=== PATIENT | male | born 1945 | race Caucasian/White ===

== ENCOUNTER 2016-09-23 19:12 | Emergency (ER) | payer MEDICARE, BC ==
[2016-09-23] MEDS ORDERED: SODIUM CHLORIDE 0.9% 1,000 ML IV STA (19:57)
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
[2016-09-23 20:15] LABS: Basophils % (A) 0 %; CH 30.9; CHCM 32.6; Eosinophils # (A) 0.1 k/uL (0-0.7); Eosinophils % (A) 2 %; HCT 44.1 % (39.0-53.0); HDW 2.47; HGB 14.2 gm/dL (13.0-17.5); Luc # (Auto) 0.19; Luc % (Auto) 2; Lymphocytes % (A) 13 %; MCH 30.6 pg (25.0-35.0); MCHC 32.1 g/dL (31.0-37.0); MCV 95.1 fL (80.0-100.0); Mean Platelet Volume 6.9; Monocytes # (A) 0.6 k/uL (0-1.0); Monocytes % (A) 8 %; Neutrophils # (A) 5.7 k/uL (1.3-7.7); Neutrophils % (A) 75 %; RBC 4.64 m/uL (4.30-5.90); WBC 7.7 k/uL (3.8-10.6); WBC (Perox) 7.47
[2016-09-23 20:33] LABS: ALT 40 U/L (21-72); AST 21 U/L (17-59); Alkaline Phosphatase 89 U/L (38-126); Amylase 46 U/L (30-110); Anion Gap 10 mmol/L; Blood Urea Nitrogen 20 mg/dL (9-20); Calcium 9.6 mg/dL (8.4-10.2); Carbon Dioxide 26 mmol/L (22-30); Chloride 104 mmol/L (98-107); Glucose 98 mg/dL (74-99); Non-African American GFR(MDRD) 51 (>60 ml/min/1.73 sqM); Potassium 4.9 mmol/L (3.5-5.1); Sodium 140 mmol/L (137-145); Total Bilirubin 0.7 mg/dL (0.2-1.3); Total Protein 7.6 g/dL (6.3-8.2)
[2016-09-23 20:37] LABS: Creatine Kinase 98 U/L (55-170)
--- NOTE | 2016-09-23 20:38 | XR ---
EXAMINATION TYPE: XR abdomen 2V DATE OF EXAM: 09/23/2016 8:34 PM CLINICAL DATA: 70-year-old male with pain and dizziness, PHH COMPARISON: None FINDINGS: Lung bases are clear. No evidence for free intraperitoneal air. No dilated small bowel or air-fluid levels. Air is seen throughout the colon without significant stoo l burden. Cholecystectomy clips are present. No suspicious calcifications seen. IMPRESSION: No significant stool burden. No evidence of bowel obstruction or free intraperitoneal air.
--- NOTE | 2016-09-23 20:40 | XR ---
EXAMINATION TYPE: XR chest 2V DATE OF EXAM: 09/23/2016 8:34 PM COMPARISON: 04/06/2013 HISTORY: 70-year-old male with dizziness and pain TECHNIQUE: PA and lateral views FINDINGS: Heart is upper limits of normal in size. Elongation of the thoracic aorta. Strandy atelectasis at the lung bases. Mild interstitial prominence is unchanged. Bridging anterior endplate spondylosis compat ible with DISH. No consolidation or pleural effusion. IMPRESSION: Chronic changes without acute cardiopulmonary process.
[2016-09-23 20:50] LABS: Creatine Kinase MB 1.5 ng/mL (0.0-2.4); Troponin I <0.012 ng/mL (0.000-0.034)
[2016-09-23 20:55] VITALS: PULSE 64
[2016-09-23 22:01] VITALS: BP 135/70; RESP 18; TEMP 98.4
== END 2016-09-23 21:43 | disposition home or self-care (01) ==
LOC: EC 19:12
DX: I10 Essential (primary) hypertension (principal); H53.8 Other visual disturbances; R14.0 Abdominal distension (gaseous); M19.90 Unspecified osteoarthritis, unspecified site; Z88.1 Allergy status to other antibiotic agents; Z79.82 Long term (current) use of aspirin; Z87.891 Personal history of nicotine dependence; Z79.899 Other long term (current) drug therapy
CPT/HCPCS: 36415; 71020; 74020; 80053; 82150; 82550; 82553; 83690; 84484; 85025; 93005; 96360; 99284

== ENCOUNTER → 2018-08-05 | Outpatient (CLI) | payer MEDICARE, BC ==
[2018-08-05 16:55] LABS: HGB 17.6 gm/dL (13.0-17.5); Hypochromasia Slight; MCH 30.6 pg (25.0-35.0); MCHC 30.8 g/dL (31.0-37.0); MCV 99.5 fL (80.0-100.0); Macrocytosis Slight; Mean Platelet Volume 8.4; Platelet Count 143 k/uL (150-450); RBC 5.74 m/uL (4.30-5.90); RDW 15.6 % (11.5-15.5); WBC 8.6 k/uL (3.8-10.6)
[2018-08-05 17:06] LABS: HCT 57.2 % (39.0-53.0)
[2018-08-05 17:07] LABS: Calcium 10.1 mg/dL (8.4-10.2); Potassium 5.4 mmol/L (3.5-5.1)
--- NOTE | 2018-08-06 12:36 | ECHOF ---
Referral Reason:Z01.818 Pre surgical exam MEASUREMENTS -------- HEIGHT: 188.0 cm WEIGHT: 138.3 kg BP: 177/85 RVIDd: 3.8 cm (< 3.3) IVSd: 1.4 cm (0.6 - 1.1) LVIDd: 5.1 cm (3.9 - 5.3) LVPWd: 1.3 cm (0.6 - 1.1) IVSs: 1.8 cm LVIDs: 3.8 cm LVPWs: 1.7 cm LA Diam: 3.6 cm (2.7 - 3.8) LAESV Index (A-L): 29.58 ml/m Ao Diam: 3.8 cm (2.0 - 3.7) AV Cusp: 2.3 cm (1.5 - 2.6) MV EXCURSION: 20.651 mm (> 18.000) MV EF SLOPE: 250 mm/s (70 - 150) EPSS: 0.4 cm MV E Demetrius: 1.05 m/s MV DecT: 213 ms MV A Demetrius: 1.02 m/s MV E/A Ratio: 1.03 AV maxP.99 mmHg AV meanP.56 mmHg RAP: 5.00 mmHg RVSP: 31.78 mmHg FINDINGS -------- Undetermined rhythm. This was a technically difficult study with suboptimal views. The left ventricular size is normal. There is moderate concentric left ventricular hypertrophy. O verall left ventricular systolic function is low-normal with, an EF between 50 - 55 %. The right ventricle is mild to moderately enlarged. LA is midly dilated 29-33ml/m2. The right atrium is normal in size. 3 ml of Lumason was utilized for enhancement of images. There is mild aortic valve sclerosis. Mild mitral annular calcification present. There is trace to mild mitral regurgitation. Mild tricuspid regurgitation present. Right ventricular systolic pressure is normal at < 35 mmHg. The pulmonic valve was not well visualized. There is no pulmonic regurgitation present. The aortic root is dilated measuring 3.8cm. IVC Not well visulized. There is no pericardial effusion. CONCLUSIONS -------- 1. Undetermined rhythm. 2. This was a technically difficult study with suboptimal views. 3. The left ventricular size is normal. 4. There is moderate concentric left ventricular hypertrophy. 5. Overall left ventricular systolic function is low-normal with, an EF between 50 - 55 %. 6. The right ventricle is mild to moderately enlarged. 7. LA is midly dilated 29-33ml/m2. 8. 3 ml of Lumason was utilized for enhancement of images. 9. There is mild aortic valve sclerosis. 10. Mild mitral annular calcification present. 11. There is trace to mild mitral regurgitation. 12. Mild tricuspid regurgitation present. 13. Right ventricular systolic pressure is normal at < 35 mmHg. 14. The pulmonic valve was not well visualized. 15. There is no pulmonic regurgitation present. 16. The aortic root is dilated measuring 3.8cm. 17. IVC Not well visulized. 18. There is no pericardial effusion. [employer]: Margaret Worthington RDCS
== END ==
LOC: RADECHMAIN 14:48
PROVIDERS: ATTEND Family Medicine
DX: Z01.818 Encounter for other preprocedural examination (principal); I08.3 Combined rheumatic disorders of mitral, aortic and tricuspid valves
CPT/HCPCS: 80048; 85027; C8929; Q9950; 93306

== ENCOUNTER 2019-04-16 09:08 | Emergency (ER) | payer MEDICARE, BC ==
--- NOTE | 2019-04-16 09:40 | ED ---
General Adult HPI - General Chief complaint: Shortness of Breath Stated complaint: DEL Time Seen by Provider: 04/16/19 09:10 Source: patient, EMS, RN notes reviewed Mode of arrival: EMS Limitations: physical limitation - History of Present Illness Initial comments: This is a 73-year-old male who presents emergency Department complaining of shortness of breath per patient states for months anytime he bends over shortness of breath is significantly worse. Patient states today he was in the shower and he was bending over multiple times and got out of the shower was extremely short of breath and could not catch his breath so he called EMS. Patient states they put oxygen on him he feels fine. Patient states this is been occurring for months and notes that when he is exercising lifting weights he does not become short of breath but mostly in the past been from bending over. Patient states he feels like his abdomen is so distended that is pushing up on his lungs. Patient denies any chest pain or palpitations. Patient denies any fever chills or cough. Patient states he does have issues with constipation but he has not been constipated lately. Patient does not have abdominal pain but does feel his abdomen is distended. - Related Data Home Medications Medication Instructions Recorded Confirmed Aspirin 81 mg PO DAILY 09/23/16 04/16/19 Lisinopril [Zestril] 20 mg PO BID 09/23/16 04/16/19 Sucralfate [Carafate] 1 gm PO QID 09/23/16 04/16/19 amLODIPine [Norvasc] 10 mg PO DAILY 09/23/16 04/16/19 Furosemide [Lasix] 20 mg PO BID 04/16/19 04/16/19 Meloxicam 150 mg PO DAILY 04/16/19 04/16/19 Thyroid,Pork [[place] Thyroid] 120 mg PO DAILY 04/16/19 04/16/19 Allergies Allergy/AdvReac Type Severity Reaction Status Date / Time daptomycin Allergy Anaphylaxis Verified 04/16/19 10:12 vancomycin Allergy Rash/Hives Verified 04/16/19 10:12 Review of Systems ROS Statement: Those systems with pertinent positive or pertinent negative responses have been documented in the HPI. ROS Other: All systems not noted in ROS Statement are negative. Past Medical History Past Medical History: Hypertension, Osteoarthritis (OA), Vascular Disorder Additional Past Medical History / Comment(s): Chronic knee infections. History of Any Multi-Drug Resistant Organisms: None Reported Past Surgical History: Ablation, Back Surgery, Cholecystectomy, Joint Replacement, Orthopedic Surgery Past Psychological History: No Psychological Hx Reported Smoking Status: Former smoker Past Alcohol Use History: Daily Past Drug Use History: Marijuana General Exam - General Exam Comments Initial Comments: GENERAL: Patient is well-developed and well-nourished. Patient is nontoxic and well- hydrated and is in mild distress. ENT: Neck is soft and supple. No significant lymphadenopathy is noted. Oropharynx is clear. Moist mucous membranes. Neck has full range of motion without eliciting any pain. EYES: The sclera were anicteric and conjunctiva were pink and moist. Extraocular movements were intact and pupils were equal round and reactive to light. Eyelids were unremarkable. PULMONARY: Unlabored respirations. Good breath sounds bilaterally. No audible rales rhonchi or wheezing was noted. CARDIOVASCULAR: There is a regular rate and rhythm without any murmurs gallops or rubs. ABDOMEN: Soft and nontender with normal bowel sounds. Mildly distended SKIN: Skin is clear with no lesions or rashes and otherwise unremarkable. NEUROLOGIC: Patient is alert and oriented x3. Cranial nerves II through XII are grossly i ntact. Motor and sensory are also intact. Normal speech, volume and content. Symmetrical smile. MUSCULOSKELETAL: Normal extremities with adequate strength and full range of motion. 1+ edema bilaterally no calf tenderness chronic cellulitis of both legs. LYMPHATICS: No significant lymphadenopathy is noted PSYCHIATRIC: Normal psychiatric evaluation. Limitations: physical limitation Course Vital Signs 04/16/19 09:12 Temperature 98.8 F Pulse Rate 46 L Respiratory 18 Rate Blood Pressure 150/67 O2 Sat by Pulse 93 L Oximetry Medical Decision Making - Medical Decision Making EKG shows a sinus rhythm with bigeminy pattern at 82 bpm TX interval 222 QRS is 1:30 QT interval 354 QTC is 413. Patient's EKG shows no ST segment elevation or depression. I spoke with Dr. Jones and he agreed to transfer the patient to [facility]. I called [facility] accepted the patient. Patient high-dose heparin started here and was transferred with it. I guess I don't know the is wonder - Lab Data Result diagrams: 04/16/19 09:22 04/16/19 09:22 Lab Results 08/03/2804/16/19 04/16/19 Range/Units 09:22 09:22 09:22 WBC 7.1 (3.8-10.6) k/uL RBC 5.51 (4.30-5.90) m/uL Hgb 16.6 (13.0-17.5) gm/dL Hct 51.9 (39.0-53.0) % MCV 94.2 (80.0-100.0) fL MCH 30.0 (25.0-35.0) pg MCHC 31.9 (31.0-37.0) g/dL RDW 16.6 H (11.5-15.5) % Plt Count 120 L (150-450) k/uL Neutrophils % 77 % Lymphocytes % 13 % Monocytes % 6 % Eosinophils % 3 % Basophils % 0 % Neutrophils # 5.5 (1.3-7.7) k/uL Lymphocytes # 0.9 L (1.0-4.8) k/uL Monocytes # 0.4 (0-1.0) k/uL Eosinophils # 0.2 (0-0.7) k/uL Basophils # 0.0 (0-0.2) k/uL Anisocytosis Slight PT 10.7 (9.0-12.0) sec INR 1.0 (<1.2) APTT 25.4 (22.0-30.0) sec D-Dimer 9.30 H (<0.60) mg/L FEU Sodium 138 (137-145) mmol/L Potassium 4.6 (3.5-5.1) mmol/L Chloride 109 H (98-107) mmol/L Carbon Dioxide 21 L (22-30) mmol/L Anion Gap 8 mmol/L BUN 26 H (9-20) mg/dL Creatinine 1.27 H (0.66-1.25) mg/dL Est GFR (CKD-EPI)AfAm 64 (>60 ml/min/1.73 sqM) Est GFR (CKD-EPI)NonAf 56 (>60 ml/min/1.73 sqM) Glucose 98 (74-99) mg/dL Calcium 9.2 (8.4-10.2) mg/dL Magnesium 2.0 (1.6-2.3) mg/dL Total Bilirubin 1.4 H (0.2-1.3) mg/dL AST 26 (17-59) U/L ALT 48 (21-72) U/L Alkaline Phosphatase 71 (38-126) U/L Troponin I (0.000-0.034) ng/mL NT-Pro-B Natriuret Pep pg/mL Total Protein 6.9 (6.3-8.2) g/dL Albumin 3.8 (3.5-5.0) g/dL 04/16/19 04/16/19 Range/Units 09:22 09:22 WBC (3.8-10.6) k/uL RBC (4.30-5.90) m/uL Hgb (13.0-17.5) gm/dL Hct (39.0-53.0) % MCV (80.0-100.0) fL MCH (25.0-35.0) pg MCHC (31.0-37.0) g/dL RDW (11.5-15.5) % Plt Count (150-450) k/uL Neutrophils % % Lymphocytes % % Monocytes % % Eosinophils % % Basophils % % Neutrophils # (1.3-7.7) k/uL Lymphocytes # (1.0-4.8) k/uL Monocytes # (0-1.0) k/uL Eosinophils # (0-0.7) k/uL Basophils # (0-0.2) k/uL Anisocytosis PT (9.0-12.0) sec INR (<1.2) APTT (22.0-30.0) sec D-Dimer (<0.60) mg/L FEU Sodium (137-145) mmol/L Potassium (3.5-5.1) mmol/L Chloride (98-107) mmol/L Carbon Dioxide (22-30) mmol/L Anion Gap mmol/L BUN (9-20) mg/dL Creatinine (0.66-1.25) mg/dL Est GFR (CKD-EPI)AfAm (>60 ml/min/1.73 sqM) Est GFR (CKD-EPI)NonAf (>60 ml/min/1.73 sqM) Glucose (74-99) mg/dL Calcium (8.4-10.2) mg/dL Magnesium (1.6-2.3) mg/dL Total Bilirubin (0.2-1.3) mg/dL AST (17-59) U/L ALT (21-72) U/L Alkaline Phosphatase (38-126) U/L Troponin I <0.012 (0.000-0.034) ng/mL NT-Pro-B Natriuret Pep 94 pg/mL Total Protein (6.3-8.2) g/dL Albumin (3.5-5.0) g/dL Critical Care Time Critical Care Time: Yes Total Critical Care Time: 45 Disposition Clinical Impression: Pulmonary embolism Disposition: OTHER INSTITUTION NOT DEFINED Referrals: Xavier Adhikari DO [Primary Care Provider] - 1-2 days Time of Disposition: 11:23 - Out of Hospital Transfer - Req. Specs Out of Hospital Transfer - Requested Specifics: Other Emergency Center ([facility])
[2019-04-16 09:43] LABS: Anisocytosis Slight; Basophils % (A) 0 %; Eosinophils # (A) 0.2 k/uL (0-0.7); Eosinophils % (A) 3 %; HCT 51.9 % (39.0-53.0); HGB 16.6 gm/dL (13.0-17.5); Lymphocytes # (A) 0.9 k/uL (1.0-4.8); Lymphocytes % (A) 13 %; MCHC 31.9 g/dL (31.0-37.0); MCV 94.2 fL (80.0-100.0); Mean Platelet Volume 7.4; Monocytes # (A) 0.4 k/uL (0-1.0); Monocytes % (A) 6 %; Neutrophils # (A) 5.5 k/uL (1.3-7.7); Neutrophils % (A) 77 %; Platelet Count 120 k/uL (150-450); RBC 5.51 m/uL (4.30-5.90); RDW 16.6 % (11.5-15.5); WBC 7.1 k/uL (3.8-10.6)
[2019-04-16 09:56] LABS: Albumin 3.8 g/dL (3.5-5.0); Calcium 9.2 mg/dL (8.4-10.2); Potassium 4.6 mmol/L (3.5-5.1); Total Bilirubin 1.4 mg/dL (0.2-1.3); Total Protein 6.9 g/dL (6.3-8.2)
[2019-04-16 10:04] LABS: Partial Thromboplastin Time 25.4 sec (22.0-30.0); Prothrombin Time 10.7 sec (9.0-12.0)
[2019-04-16 10:06] LABS: D-Dimer 9.3 mg/L FEU (<0.60)
[2019-04-16] MEDS ORDERED: LORazepam 2 MG/ML INJ IV STA (10:25)
[2019-04-16] MEDS ORDERED: HEPARIN SODIUM,PORCINE 10,000 UNIT/ML 1 ML VIAL IV ONE (10:36)
[2019-04-16] MEDS ORDERED: HEPARIN SOD,PORK IN 0.45% NACL 25,000 UNIT in 0.45% NACL 1 250ML.BAG IV SCH (10:45)
--- NOTE | 2019-04-16 10:52 | XR ---
EXAMINATION TYPE: XR chest 2V DATE OF EXAM: 04/16/2019 COMPARISON: 09/23/2016 HISTORY: Difficulty breathing TECHNIQUE: Frontal and lateral views of the chest are obtained. FINDINGS: There is pulmonary hypoinflation. This creates crowding of the pulmonary vessels. There is no focal air space opacity, pleural effusion, or pneumothorax seen. The cardiac silhouette size is enlarged as seen on the prior, exaggerated by low lung volumes. The osseous structures are intact. Moderate multilevel degenerative changes of the spine. IMPRESSION: Exaggerated pulmonary vasculature and cardiomediastinal silhouette size by low lung volu mes. Cardia mediastinal silhouette remains enlarged. No focal air space disease.
--- NOTE | 2019-04-16 10:52 | CT ---
CT CHEST FOR PULMONARY EMBOLISM. EXAMINATION TYPE: CT chest angio for PE DATE OF EXAM: 04/16/2019 INDICATION: SOB, epigastric pain CT DLP: 736.6 mGycm, Automated exposure control for dose reduction was used. CONTRAST: Patient injected with 80 mL of Isovue 370. COMPARISON: None TECHNIQUE: CT of the chest is performed on a spiral scan at 2 mm thick sections. Study is performed with intravenous contrast timed for evaluation for pulmonary embolism. This will limit additional po rtions of the evaluation. 3-D MIP images reconstructed by the technologist are reviewed on the compu ter in the coronal and sagittal planes. FINDINGS: There is a saddle embolus with thrombus crossing the main pulmonary artery bifurcation. Pulmonary emb rena are within the lingular right lower lobe branches. Mild right heart strain with reflux into the p roximal inferior vena cava is evident. No septum deviation is evident. No mediastinal or hilar adenopathy enlarged by CT criteria is evident. The ascending aorta diameter at the level of the main pulmonary artery is 4.2 cm. The main pulmonary artery diameter at the bifur cation is 3.6 cm. Lung windows are clear. Limited CT section through the upper abdomen demonstrate calcified splenic granuloma are noted. IMPRESSIONS: 1. Central saddle pulmonary artery embolus with mild right heart strain. Report was called to Dr. Etienne wick by Dr. Odonnell by telephone [id number] hours 04/16/2019 .
[2019-04-16 13:05] VITALS: BP 147/72; PULSE 82; RESP 17; TEMP 98.2
== END 2019-04-16 12:05 | disposition other institution (70) ==
LOC: EC 09:08
DX: I26.99 Other pulmonary embolism without acute cor pulmonale (principal); I10 Essential (primary) hypertension; M19.90 Unspecified osteoarthritis, unspecified site; Z96.698 Presence of other orthopedic joint implants; Z87.891 Personal history of nicotine dependence; Z79.82 Long term (current) use of aspirin; Z79.1 Long term (current) use of non-steroidal anti-inflammatories (NSAID); Z79.899 Other long term (current) drug therapy; Z88.1 Allergy status to other antibiotic agents
CPT/HCPCS: 36415; 93005; 85379; 83880; 80053; 83735; 84484; 85025; 85610; 85730; 71046; 71275; 99291; 96365; 96375; 96376; J2060; J1644 ×2; Q9967